=== PATIENT | male | born 1940 | race Caucasian/White ===

== ENCOUNTER 2020-02-11 18:46 | Inpatient (IN) | payer MEDICARE ==
[~2020-02-11] VITALS: Ht 160 cm; Wt 57.2 kg
[~2020-02-11 18:46] MED LIST: PANTOPRAZOLE 40MG VIAL (C9113 PER 1) IV SCH
[2020-02-11] MEDS ORDERED: LEVO500T3 PO (19:00)
[2020-02-11] MEDS ORDERED: NS 500 ML IV ONE ×2 (19:45→20:45)
[2020-02-11 19:54] LABS: BASO % 0.2 % (0.0-1.0); EOS % 0.2 % (0.0-3.0); HEMATOCRIT 33.4 % (42.0-52.0); HEMOGLOBIN 10.8 g/dl (13.5-17.5); LYMPH # 0.9 10^3/uL (1.5-5.0); LYMPH % 5.1 % (24.0-44.0); MEAN CORPUSCULAR HEMOGLOBIN 28.6 pg (27.0-33.0); MEAN CORPUSCULAR HGB CONC 32.3 g/dl (32.0-36.5); MEAN CORPUSCULAR VOLUME 88.4 fl (80.0-96.0); MONO # 1.4 10^3/uL (0.0-0.8); MONO % 8.1 % (0.0-5.0); NEUTROPHILS # 14.4 10^3/uL (1.5-8.5); NEUTROPHILS % 85.8 % (36.0-66.0); PLATELET COUNT, AUTOMATED 270 10^3/uL (150-450); RED BLOOD COUNT 3.78 10^6/uL (4.30-6.10); WHITE BLOOD COUNT 16.7 10^3/uL (4.0-10.0)
[2020-02-11 20:33] LABS: BLOOD UREA NITROGEN 22 MG/DL (7-18); CALCIUM LEVEL 10.4 MG/DL (8.8-10.2); CARBON DIOXIDE LEVEL 26 MEQ/L (21-32); CHLORIDE LEVEL 97 MEQ/L (98-107); CREATININE FOR GFR 1.21 MG/DL (0.70-1.30); GLOMERULAR FILTRATION RATE > 60.0 (>42); GLUCOSE, FASTING 103 MG/DL (70-100); POTASSIUM SERUM 4.9 MEQ/L (3.5-5.1); SODIUM LEVEL 132 MEQ/L (136-145); T UPTAKE 34 % (33-40); THYROXINE (T4) 8.7 UG/DL (4.5-12.0)
[2020-02-11] MEDS ORDERED: PANTOPRAZOLE 40MG VIAL (C9113 PER 1) IV ONE (22:00)
[2020-02-11] MEDS ORDERED: NYST50SS SS (22:02)
[2020-02-11] MEDS ORDERED: CALC600C3 PO (22:02)
[2020-02-11] MEDS ORDERED: TRAM50TA2 PO (22:02)
[2020-02-11] MEDS ORDERED: TREL1AER PO (22:02)
[2020-02-11] MEDS ORDERED: IPRA0.00 NEB (22:02)
--- NOTE | 2020-02-11 22:04 | HPEPDOC ---
General Date of Admission 02/11/20 Date of Service: Feb 11, 2020 Chief Complaint The patient is a 79-year-old male admitted with a reason for visit of Swallowing Difficulty. Source: Patient Exam Limitations: No limitations, Hard of hearing Timing/Duration: Week(s) Severity: Moderate Associated Symptoms: Weakness History of Present Illness Patient is 79 years old male with past medical history of peripheral vascular diseases with femoral popliteal bypass, who is active smoker presented to the hospital with difficulties in swallowing. According to his patient did have problems with swallowing of hard fold for a few years. Dysphagia became progressively worse for past few months. For past few days patient was unable to swallow regular foot and only just drink water or juice. In [facility] CT was done on 02/02/2020 and showed 27 mm non calcified nodule of the azygos esophageal recess and cardiomegaly. Pleural space positive for multiple pleural nodularities throughout the right hemithorax. Patient denied fever, chills, nausea, vomiting, chest pain, diarrhea or dysuria. His stated that patient lost around 22 pounds for past 12 months unintentionally. Home Medications Scheduled Calcium Carbonate/Vitamin D3 (Calcium 600+D Softgel) 1 Each Capsule, 1 CAP PO DAILY, (Reported) Fluticasone/Umeclidin/Vilanter (Trelegy Ellipta 100-62.5-25) 1 Each Blst.w.dev, 1 PUFF PO DAILY, (Reported) Levofloxacin (Levofloxacin) 500 Mg Tablet, 500 MG PO DAILY, (Reported) started 02/04/20 for 10 days Nystatin (Nystatin Oral Susp) 100,000 Unit/1 Ml Oral.susp, 5 ML SS QID, (Reported) Scheduled PRN Ipratropium/Albuterol Sulfate (Iprat-Albut 0.5-3(2.5) mg/3 ml) 3 Ml Ampul.neb, 1 VIAL NEB QID PRN for SHORTNESS OF BREATH, (Reported) Tramadol HCl (Tramadol HCl) 50 Mg Tablet, 50 MG PO Q6H PRN for PAIN, (Reported) Allergies Coded Allergies: No Known Drug Allergies (Verified Allergy, Unknown, 02/11/20) hydromorphone (Verified Adverse Reaction, Mild, 02/11/20) confusion morphine (Verified Adverse Reaction, Mild, 02/11/20) confusion Past Medical History Medical History PVD Surgical History Femoral popliteal bypass C2 neck surgery due to fracture Family History I reviewed family history and found not pertinent Social History * Smoker: current smoker Alcohol: Denies Drugs: denies A-FIB/CHADSVASC A-FIB History Current/History of A-Fib/PAF?: No Current PO Anticoag Therapy: No Review of Systems Constitutional: Reports: Malaise; Denies: Chills Eyes: Denies: Pain ENT: Denies: Head Aches Skin: Denies: Rash Pulmonary: Denies: Dyspnea Cardiovascular: Denies: Chest Pain Gastrointestinal: Reports: Other Symptoms (dysphagia of solid food) Genitourinary: Denies: Dysuria Hematologic: Denies: Bruising Endocrine: Denies: Polydipsia, Polyphagia Musculoskeletal: Denies: Neck Pain Neurological: Denies: Weakness, Numbness Psych: Reports: Mood Normal Physical Examination General Exam: Positive: Alert, Cooperative Eye Exam: Positive: PERRLA ENT Exam: Positive: Atraumatic Neck Exam: Positive: Supple; Negative: JVD Chest Exam: Positive: Clear to auscultation Heart Exam: Positive: Tachycardic Telemetry: Positive: Sinus Abdomen Exam: Positive: Normal bowel sounds, Soft; Negative: Tenderness Extremity Exam: Positive: Clubbing; Negative: Cyanosis Skin Exam: Positive: Nl turgor and temperature Neuro Exam: Positive: Strength at 5/5 X4 ext Psych Exam: Positive: Mental status NL Vital Signs Vital Signs Date Time Temp Pulse Resp B/P (MAP) Pulse Ox O2 Delivery O2 Flow Rate FiO2 02/11/20 19:11 02/11/20 18:47 96.8 68 21 97 Room Air Laboratory Data Labs 24H Laboratory Tests 2 02/11/20 19:39: Immature Granulocyte % (Auto) 0.6, Neutrophils (%) (Auto) 85.8H, Lymphocytes (%) (Auto) 5.1L, Monocytes (%) (Auto) 8.1H, Eosinophils (%) (Auto) 0.2, Basophils (%) (Auto) 0.2, Neutrophils # (Auto) 14.4H, Lymphocytes # (Auto) 0.9L, Monocytes # (Auto) 1.4H, Eosinophils # (Auto) 0.0, Basophils # (Auto) 0.0, Nucleated Red Blood Cells % (auto) 0.0, Anion Gap 9, Glomerular Filtration Rate > 60.0, Calcium Level 10.4H, Thyroid Stimulating Hormone (TSH) 4.400H, Free Thyroxine Index 3.0, Thyroxine (T4) 8.7, Triiodothyronine (T3) Uptake 34 CBC/BMP Laboratory Tests 02/11/20 19:39 Assessment/Plan Patient is 79 years old male with past medical history of peripheral vascular diseases with femoral popliteal bypass, who is active smoker presented to the hospital with difficulties in swallowing. According to his patient did have problems with swallowing of hard fold for a few years. Dysphagia became progressively worse for past few months. For past few days patient was unable to swallow regular foot and only just drink water or juice. In [facility] CT was done on 02/02/2020 and showed 27 mm non calcified nodule of the azygos esophageal recess and cardiomegaly. Pleural space positive for multiple pleural nodularities throughout the right hemithorax. Patient denied fever, chills, nausea, vomiting, chest pain, diarrhea or dysuria. His stated that patient lost around 22 pounds for past 12 months unintentionally. Problems (1) Esophageal dysphagia Status: Acute Problem Text: Differential diagnosis included achalasia, esophageal dysmotili ty, malignancy, stricture Patient is active smoker and he developed progressive swallowing difficulties of solid food Dr. Michel will proceed with endoscopy tomorrow (2) Dehydration Status: Acute Problem Text: Secondary to poor oral intake due to dysphagia Continue IV fluid (3) Peripheral vascular disease Status: Chronic Problem Text: I will start statin and aspirin Patient didn't take medications Plan / VTE VTE Prophylaxis Ordered?: Yes ANGELA OROZCO DO Feb 11, 2020 22:04
[2020-02-11 22:40] VITALS: BP 144/65
[2020-02-11] MEDS: D5W/0.9% SODIUM CHLORIDE 1,000 ML IV SCH (23:04)
[2020-02-11] MEDS: HEPARIN SOD (PORCINE) 5000UNITS/ML 1ML VIAL/SYRINGE SC SCH (23:11)
[2020-02-12] MEDS: D5W/0.9% SODIUM CHLORIDE 1,000 ML IV SCH ×3 (05:33→23:40)
[2020-02-12 06:00] VITALS: BP 123/58
[2020-02-12 07:00] LABS: HEMOGLOBIN 8.7 g/dl (13.5-17.5); MEAN CORPUSCULAR HEMOGLOBIN 28.7 pg (27.0-33.0); MEAN CORPUSCULAR HGB CONC 32.2 g/dl (32.0-36.5); MEAN CORPUSCULAR VOLUME 89.1 fl (80.0-96.0); PLATELET COUNT, AUTOMATED 211 10^3/uL (150-450); RED BLOOD COUNT 3.03 10^6/uL (4.30-6.10); WHITE BLOOD COUNT 10.1 10^3/uL (4.0-10.0)
[2020-02-12 07:29] LABS: ALBUMIN 1.5 GM/DL (3.2-5.2); ALT/SGPT 13 U/L (12-78); BILIRUBIN,TOTAL 0.6 MG/DL (0.2-1.0); BLOOD UREA NITROGEN 19 MG/DL (7-18); CALCIUM LEVEL 9.2 MG/DL (8.8-10.2); CARBON DIOXIDE LEVEL 27 MEQ/L (21-32); CHLORIDE LEVEL 104 MEQ/L (98-107); CREATININE FOR GFR 0.89 MG/DL (0.70-1.30); GLOMERULAR FILTRATION RATE > 60.0 (>42); GLUCOSE, FASTING 129 MG/DL (70-100); MAGNESIUM LEVEL 2.1 MG/DL (1.8-2.4); POTASSIUM SERUM 3.7 MEQ/L (3.5-5.1); SODIUM LEVEL 135 MEQ/L (136-145); TOTAL PROTEIN 5.1 GM/DL (6.4-8.2)
[2020-02-12] MEDS: HEPARIN SOD (PORCINE) 5000UNITS/ML 1ML VIAL/SYRINGE SC SCH ×2 (07:45→20:20)
[2020-02-12] MEDS: PANTOPRAZOLE 40MG VIAL (C9113 PER 1) IV SCH ×2 (08:21→20:20)
--- NOTE | 2020-02-12 09:36 | REP ---
REASON: Admission. PRIORS: None. The technique utilized in obtaining the radiograph has magnified the cardiac silhouette and accentuated the interstitial markings. There is cardiomegaly accentuated by technique. There is basilar fibrosis, right greater than left. Along the right lateral chest wall, there are two soft tissue masses. There is right CP angle blunting. The osseous structures are within normal limits. IMPRESSION: 1. Two pleural-based masses along the right lateral chest wall. There are no priors for comparison. Malignancy versus loculated pleural effusions. Chest CT is recommended. 2. Fibrotic changes. 3. Cardiomegaly Electronically Signed by Juni Scanlon DO 02/12/2020 09:56 A
[2020-02-12] MEDS ORDERED: ISOVUE-370 76% 100ML VIAL As Ordered ONE (10:49)
--- NOTE | 2020-02-12 12:28 | IPNPDOC ---
Date Seen The patient was seen on 02/12/20. Progress Note SUBJECTIVE: Patient appears comfortable and answer all appropriately but does seem a bit confused. AAOx3. However, when asked how long his symptoms has been there, he cannot remember and think that he has had hallucinations. Afebrile overnight. WBC 16.7 ->10.1. OBJECTIVE PHYSICAL EXAMINATION: VITAL SIGNS: Please see below. General: No acute distress, Alert, slightly confused Eyes: Normal sclera, EOMI HENT: Atraumatic Cardiovascular: Normal rate Pulmonary: Clear to auscultation b/l, no wheezing GI: Soft, nontender, nondistended Skin: Warm and dry Neuro: CN grossly intact. No focal deficits. Generalized weakness. Psych: oriented x 3, slightly confused LABORATORY DATA, IMAGING STUDIES, MICROBIOLOGY: Please see below. DVT prophylaxis ordered?: HSQ ASSESSMENT AND PLAN: 1. Esophageal/lung mass - Extensive history of smoking and fibroblast exposure when he works on [employer], denies asbestos exposure. - CT scan from [facility] shows 27mm noncalcified nodule at the azygos esophageal recess and multiple pleural nodularities throughout R. hemithorax. - Repeat CT scan here with contrast reviewed with CTS, does not look like significant fluid collection and does suggest malignancy. - GI plan on EGD today to get tissue biopsy and evaluate esophagus. - Saturating well, not in respiratory distress. - Will f/u post biopsy results and refer to oncology as appropriate. - Resume liquid diet as tolerated post procedure. 2. PVD - s/p fem pop bypass. Still smoking extensively. 3. Dehydration - 2/2 poor oral intake. - IVF support. Code status: Full code DISPOSITION: Home once medically clear. VS, I&O, 24H, [facility] Vital Signs/I&O Vital Signs Date Time Temp Pulse Resp B/P (MAP) Pulse Ox O2 Delivery O2 Flow Rate FiO2 02/12/20 06:00 98.4 84 19 123/58 (79) 96 Room Air I&O- Last 24 Hours up to 6 AM 02/12/20 06:00 Intake Total 1840 ml Balance 1840 ml Laboratory Data 24H LABS Laboratory Tests 2 02/11/20 19:39: Immature Granulocyte % (Auto) 0.6, Neutrophils (%) (Auto) 85.8H, Lymphocytes (%) (Auto) 5.1L, Monocytes (%) (Auto) 8.1H, Eosinophils (%) (Auto) 0.2, Basophils (%) (Auto) 0.2, Neutrophils # (Auto) 14.4H, Lymphocytes # (Auto) 0.9L, Monocytes # (Auto) 1.4H, Eosinophils # (Auto) 0.0, Basophils # (Auto) 0.0, Nucleated Red Blood Cells % (auto) 0.0, Anion Gap 9, Glomerular Filtration Rate > 60.0, Calcium Level 10.4H, Thyroid Stimulating Hormone (TSH) 4.400H, Free Thyroxine Index 3.0, Thyroxine (T4) 8.7, Triiodothyronine (T3) Uptake 34 02/12/20 06:27: Nucleated Red Blood Cells % (auto) 0.0, Anion Gap 4L, Glomerular Filtration Rate > 60.0, Calcium Level 9.2, Magnesium Level 2.1, Total Bilirubin 0.6, Aspartate Amino Transf (AST/SGOT) 17, Alanine Aminotransferase (ALT/SGPT) 13, Alkaline Phosphatase 112, Total Protein 5.1L, Albumin 1.5L, Albumin/Globulin Ratio 0.4 CBC/BMP Laboratory Tests 02/11/20 19:39 02/12/20 06:27 Microbiology Microbiology 02/12/20 Blood Culture, Received Pending 02/12/20 Respiratory Virus Panel (PCR) (GERMAN) - Final, Complete MOSESSHERRELL MD Feb 12, 2020 12:28
[2020-02-12 14:00] VITALS: BP 123/61
[2020-02-12 14:12] LABS: ABG BASE EXCESS -1.5 (-2.0-2.0); ABG HCO3 21.9 MEQ/L (22.0-26.0); ABG O2 SATURATION 95.6 % (95.0-99.0); ABG PARTIAL PRESSURE CO2 31.7 mmHg (35.0-45.0); ABG PARTIAL PRESSURE O2 76.2 mmHg (75.0-100.0); ABG STANDARD HCO3 23.2 MEQ/L (22.0-26.0); ABG TOTAL CO2 22.9 MEQ/L (23.0-31.0); ABG pH (ARTERIAL) 7.457 UNITS (7.350-7.450)
[2020-02-12] MEDS ORDERED: LIDOCAINE 2% 100MG/5ML SDV (FOR ANES.) As Ordered ONE (14:29)
[2020-02-12] MEDS ORDERED: propofoL 200 MG/20 ML VIAL As Ordered ONE (14:29)
--- NOTE | 2020-02-12 14:56 | REP ---
REASON: Abnormal opacities seen on plain film examination of 02/12/2020 at 11 a.m. CONTRAST TODAY: 100 mL Isovue-370. There are no prior chest CTs for comparison. There is mediastinal and particularly right infrahilar medial adenopathy. This large lymph node measures 2.8 cm in short axis dimension. There is no left hilar adenopathy. There are multiple pleural-based soft tissue mass densities along the right lateral chest wall and along the posterior and medial right chest wall. There is mixed peripheral and central enhancement of these extensive pleural-based masses. There is no evidence of free pleural fluid. Evaluation of the osseous structures shows what appears to be an old fracture involving the right 4th rib. Evaluation of the lung glover shows emphysematous changes with parenchymal fibrosis and scattered parenchymal bullae and pleural blebs in addition to the aforementioned right-sided pleural-based masses. There is honeycomb lung, particularly in the right lower lobe, complicated by parenchymal curvilinear densities, likely arising from the aforementioned masses. IMPRESSION: 1. 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 2. Advanced chronic lung changes, as described above. 3. Probable old right 4th rib fracture. Electronically Signed by Juni Scanlon DO 02/12/2020 04:27 P
--- NOTE | 2020-02-12 15:43 | CR.PDOC ---
General Date of Consultation: Feb 12, 2020 Referring Provider: ANGELA LINARES DO Attending Physician: NÉSTOR CERVANTES MD Consultation Hospitalist : Dr. Fuentes Linares Reason for consult: Dysphagia and abnormal CT scan. HPI: 79 years old male patient with peripheral vascular diseases with femoral popliteal bypass, active smoker presented to the hospital with difficulties in swallowing. According to his patient did have problems with swallowing of solid foods for a few years and recently noted that it is slowly getting worse. For past few days patient was unable to swallow regular food and only taking liquids. Patient went to [facility] where he had CT was done on 02/02/2020 and showed 27 mm non calcified nodule of the azygos esophageal recess and cardiomegaly, Pleural space positive for multiple pleural nodularities throughout the right hemithorax. ( only report available but no images). Patient denied fever, chills, nausea, vomiting, chest pain, diarrhea or dysuria. 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 Pertinent negative GI symptoms: Patient denies fever, sick contacts, recent travel, nausea, vomiting, diarrhea, abdominal pain, loss of appetite, early satiety or unintentional weight loss. No history of hematemesis, melena or hematochezia. Review of Systems: GI: as stated above CVS: No chest pain, No palpitations, No leg swelling. RS: No Shortness of breath, No Wheezing, no cough WET TRIMMER: No dizziness, No motor weakness, No sensory problems Hematology: No bruising, No gum bleeding, Musculoskeletal: No joint pain, ambulating well. Skin: No rash : No hematuria, No burning sensation of the urine ENT: No ear discharge/ pain, No dysphagia. Eyes: No photophobia. Jaundice Home medications: reviewed. Antithrombotic agents - none Medical h/o: As above. Surgical h/o: None on abdomen. Social h/o: Alcohol- past , smoking -- active smoker , IVDA/ drugs: denies. Family h/o of GI cancers - None Prior Endoscopies: None in [facility] Prior GI evaluations: None Exam: Vitals: reviewed General: Alert and oriented x 3, not in distress HEENT: NO pallor, no icterus. Normal oropharynx, NO cervical lymph nodes. Chest: symmetric with bilateral clear air entry, CVS: S1, S2 heard, normal, no murmurs . Abdomen: non-distended, no surgical scars, soft, non-tender, no palpable masses , normal bowel sounds heard. Rectal exam: Patient refused / Deferred at this time in view of scheduled colonoscopy. Extremities: no pedal edema, pulses palpable. WET TRIMMER: no focal motor or sensory deficits. Moves all extremities Skin: no rash. Labs: reviewed.. Imaging: reviewed. Impression: -- Dysphagia with abnormal CT scan showing pleural based nodules -- needs further assessment. Recommendations: - Patient educated about the test results, possible differential diagnoses and All questions answered. - Will schedule for EGD for further evaluation. - The procedure, indications, risks (bleeding, perforation, infection, hypotension, respiratory depression, allergy, need for endotracheal intubation, surgery, colostomy, cardiac arrest, even ), benefits, limitations (e.g., missing a lesion), and all other alternatives (including no intervention) were explained to the patient who understood and agreed for the procedure. - Post procedure recommendations based on the operative note. Please see the operative report ( separate note) Plan of care discussed with patient and primary team. Patient verbalized understanding and agreed with the plan. Vital Signs/I&O Vital Signs Date Time Temp Pulse Resp B/P (MAP) Pulse Ox O2 Delivery O2 Flow Rate FiO2 02/12/20 14:00 97.9 81 17 123/61 (81) 98 Room Air I&O- Last 24 Hours up to 6 AM 02/12/20 06:00 Intake Total 1840 ml Balance 1840 ml Laboratory Data Labs 24H Laboratory Tests 2 02/11/20 19:39: Immature Granulocyte % (Auto) 0.6, Neutrophils (%) (Auto) 85.8H, Lymphocytes (%) (Auto) 5.1L, Monocytes (%) (Auto) 8.1H, Eosinophils (%) (Auto) 0.2, Basophils (%) (Auto) 0.2, Neutrophils # (Auto) 14.4H, Lymphocytes # (Auto) 0.9L, Monocytes # (Auto) 1.4H, Eosinophils # (Auto) 0.0, Basophils # (Auto) 0.0, Nucleated Red Blood Cells % (auto) 0.0, Anion Gap 9, Glomerular Filtration Rate > 60.0, Calcium Level 10.4H, Thyroid Stimulating Hormone (TSH) 4.400H, Free Thyroxine Index 3.0, Thyroxine (T4) 8.7, Triiodothyronine (T3) Uptake 34 02/12/20 06:27: Nucleated Red Blood Cells % (auto) 0.0, Anion Gap 4L, Glomerular Filtration Rate > 60.0, Calcium Level 9.2, Magnesium Level 2.1, Total Bilirubin 0.6, Aspartate Amino Transf (AST/SGOT) 17, Alanine Aminotransferase (ALT/SGPT) 13, Alkaline Phosphatase 112, Total Protein 5.1L, Albumin 1.5L, Albumin/Globulin Ratio 0.4 02/12/20 14:05: Blood Gas Bicarbonate Standard 23.2, Arterial Blood pH 7.457H, Arterial Blood Partial Pressure CO2 31.7L, Arterial Blood Partial Pressure O2 76.2, Arterial Blood Total CO2 22.9L, Arterial Blood HCO3 21.9L, Arterial Blood Base Excess - 1.5, Arterial Blood Oxygen Saturation 95.6 CBC/BMP Laboratory Tests 02/11/20 19:39 02/12/20 06:27 Microbiology Microbiology 02/12/20 Blood Culture, Received Pending 02/12/20 Respiratory Virus Panel (PCR) (GERMAN) - Final, Complete Allergies Coded Allergies: Penicillins (Verified Allergy, Unknown, unknown, 02/11/20) hydromorphone (Verified Adverse Reaction, Mild, confusion, 02/11/20) confusion morphine (Verified Adverse Reaction, Mild, confusion, 02/11/20) confusion Home Medications Scheduled Calcium Carbonate/Vitamin D3 (Calcium 600+D Softgel) 1 Each Capsule, 1 CAP PO DAILY, (Reported) Fluticasone/Umeclidin/Vilanter (Trelegy Ellipta 100-62.5-25) 1 Each Blst.w.dev, 1 PUFF PO DAILY, (Reported) Levofloxacin (Levofloxacin) 500 Mg Tablet, 500 MG PO DAILY, (Reported) started 02/04/20 for 10 days Nystatin (Nystatin Oral Susp) 100,000 Unit/1 Ml Oral.susp, 5 ML SS QID, (Reported) Scheduled PRN Ipratropium/Albuterol Sulfate (Iprat-Albut 0.5-3(2.5) mg/3 ml) 3 Ml Ampul.neb, 1 VIAL NEB QID PRN for SHORTNESS OF BREATH, (Reported) Tramadol HCl (Tramadol HCl) 50 Mg Tablet, 50 MG PO Q6H PRN for PAIN, (Reported) NÉSTOR CERVANTES MD Feb 12, 2020 15:43
[2020-02-12] MEDS ORDERED: PHENYLephrine HCL 500 MCG/5 ML (100MCG/ML) SYRINGE (J2370) As Ordered ONE (15:55)
--- NOTE | 2020-02-12 16:48 | ROOR ---
Patient Name: Ramos Navarro Procedure Date: 02/12/2020 3:41 PM Date of : 1940 Age: 79 Room: Main OR Gender: Male Note Status: Finalized Procedure: Upper GI endoscopy Indications: Dysphagia, Abnormal CT of the GI tract Providers: Maksim Michel MD Referring MD: Marco A Hyde Md Requesting Provider: Medicines: Monitored Anesthesia Care Complications: No immediate complications. Procedure: Pre-Anesthesia Assessment: - Prior to the procedure, a History and Physical was performed, and patient medications and allergies were reviewed. The patient is competent. The risks and benefits of the procedure and the sedation options and risks were discussed with the patient. All questions were answered and informed consent was obtained. Patient identification and proposed procedure were verified by the physician, the nurse and the anesthesiologist in the procedure room. Mental Status Examination: alert and oriented. Airway Examination: normal oropharyngeal airway and neck mobility. Respiratory Examination: clear to auscultation. CV Examination: normal. Prophylactic Antibiotics: The patient does not require prophylactic antibiotics. Prior Anticoagulants: The patient has taken no previous anticoagulant or antiplatelet agents. ASA Grade Assessment: II - A patient with mild systemic disease. After reviewing the risks and benefits, the patient was deemed in satisfactory condition to undergo the procedure. The anesthesia plan was to use monitored anesthesia care (MAC). Immediately prior to administration of medications, the patient was re-assessed for adequacy to receive sedatives. The heart rate, respiratory rate, oxygen saturations, blood pressure, adequacy of pulmonary ventilation, and response to care were monitored throughout the procedure. The physical status of the patient was re-assessed after the procedure. The Endoscope was introduced through the mouth, and advanced to the second part of duodenum. The upper GI endoscopy was accomplished without difficulty. The patient tolerated the procedure well. Findings: One benign-appearing, intrinsic severe (stenosis; an endoscope cannot pass) stenosis was found 38 to 39 cm from the incisors. This stenosis measured 8 mm (inner diameter) x less than one cm (in length). The stenosis was traversed after downsizing scope and dilating. Biopsies were taken with a cold forceps for histology. Verification of patient identification for the specimen was done by the physician and nurse using the patient's name, date and medical record number. Estimated blood loss was minimal. A TTS dilator was passed through the scope. Dilation with a 10-11-12 mm balloon dilator was performed to 12 mm. The dilation site was examined following endoscope reinsertion and showed mild mucosal disruption, moderate improvement in luminal narrowing, no bleeding and no perforation. A small hiatal hernia was present. Localized moderate inflammation characterized by congestion (edema), friability and granularity was found at the gastroesophageal junction. Biopsies were taken with a cold forceps for histology. ( the biopsies are kept together with stricture biopsies). Moderate gastric antral vascular ectasia without bleeding was present in the gastric antrum. The duodenal bulb, second portion of the duodenum and third portion of the duodenum were normal. Impression: - Benign-appearing esophageal stenosis. Biopsied. Dilated. - Small hiatal hernia. - Gastritis. Biopsied. - Gastric antral vascular ectasia without bleeding. - Normal duodenal bulb, second portion of the duodenum and third portion of the duodenum. Recommendation: - Patient has a contact number available for emergencies. The signs and symptoms of potential delayed complications were discussed with the patient. Return to normal activities tomorrow. Written discharge instructions were provided to the patient. - Clear liquid diet today, then advance as tolerated to chopped diet, pureed diet and soft diet. - Continue present medications. - Use Protonix (pantoprazole) 40 mg PO twice daily - to be taken in morning (1/2 hour before breakfast) and at bedtime ( atleast 3 hours after last meal) for 3 months. - Use sucralfate suspension 1 gram PO QID for 4 weeks. - No ibuprofen, naproxen, or other non-steroidal anti-inflammatory drugs. - Await pathology results. - Follow an antireflux regimen. - Further work up for the pleural-based masses as per the pulmonary/ primary team. ( less likely esophageal malignancy). - Telephone GI clinic for pathology results 1 - 2 weeks. Please call GI clinic @ [phone]. - Repeat upper endoscopy in 3 months to check healing, to evaluate the response to therapy and depending on the symptoms and clinical response. - Return to primary care physician. Maksim Michel MD Maksim Michel MD 02/12/2020 4:48:11 PM Electronically signed by Maksim Michel MD Number of Addenda: 0 Note Initiated On: 02/12/2020 3:41 PM Estimated Blood Loss: Estimated blood loss was minimal.
[2020-02-12 17:00] VITALS: BP 123/62
[2020-02-12] MEDS ORDERED: LevoFLOXacin 500 MG TABLET PO ONE (17:00)
[2020-02-12] MEDS: SUCRALFATE SUSP 1GM/10ML UD PO SCH ×2 (17:08→20:20)
[2020-02-12 22:00] VITALS: BP 129/72
[2020-02-13 06:00] VITALS: BP 124/62
[2020-02-13 07:15] LABS: HEMATOCRIT 28.4 % (42.0-52.0); HEMOGLOBIN 8.9 g/dl (13.5-17.5); MEAN CORPUSCULAR HEMOGLOBIN 28.2 pg (27.0-33.0); MEAN CORPUSCULAR HGB CONC 31.3 g/dl (32.0-36.5); MEAN CORPUSCULAR VOLUME 89.9 fl (80.0-96.0); PLATELET COUNT, AUTOMATED 222 10^3/uL (150-450); RED BLOOD COUNT 3.16 10^6/uL (4.30-6.10)
[2020-02-13 07:37] LABS: BLOOD UREA NITROGEN 11 MG/DL (7-18); CALCIUM LEVEL 8.8 MG/DL (8.8-10.2); CARBON DIOXIDE LEVEL 25 MEQ/L (21-32); CHLORIDE LEVEL 108 MEQ/L (98-107); CREATININE FOR GFR 0.83 MG/DL (0.70-1.30); GLOMERULAR FILTRATION RATE > 60.0 (>42); GLUCOSE, FASTING 118 MG/DL (70-100); POTASSIUM SERUM 3.5 MEQ/L (3.5-5.1); SODIUM LEVEL 140 MEQ/L (136-145)
[2020-02-13] MEDS: PANTOPRAZOLE 40MG VIAL (C9113 PER 1) IV SCH ×2 (07:50→20:39)
[2020-02-13] MEDS: SUCRALFATE SUSP 1GM/10ML UD PO SCH ×4 (07:50→20:39)
[2020-02-13] MEDS: D5W/0.9% SODIUM CHLORIDE 1,000 ML IV SCH ×3 (07:50→23:50)
[2020-02-13] MEDS: HEPARIN SOD (PORCINE) 5000UNITS/ML 1ML VIAL/SYRINGE SC SCH ×2 (07:51→20:39)
[2020-02-13] MEDS: ACETAMINOPHEN TAB 650MG DOSE (2X325MG) PO PRN (09:42)
[2020-02-13 14:00] VITALS: BP 131/66
[2020-02-13] MEDS: traMADol 50 MG TAB PO PRN ×2 (16:02→23:46)
--- NOTE | 2020-02-13 17:29 | IPNPDOC ---
Date Seen The patient was seen on 02/13/20. Progress Note SUBJECTIVE: Patient states that he feels better today. Difficulty swallowing pills but liquid/soft diet seem to be tolerable for him. s/p EGD for esophageal dilatation yesterday. Afebrile overnight. WBC 10 OBJECTIVE PHYSICAL EXAMINATION: VITAL SIGNS: Please see below. General: No acute distress, Alert, difficult to understand speech, no teeth, cachectic Eyes: Normal sclera, EOMI HENT: Atraumatic Cardiovascular: Normal rate Pulmonary: Clear to auscultation b/l, no wheezing GI: Soft, nontender, nondistended Skin: Warm and dry Neuro: CN grossly intact. No focal deficits. Generalized weakness. Psych: oriented x 3, slightly confused LABORATORY DATA, IMAGING STUDIES, MICROBIOLOGY: Please see below. DVT prophylaxis ordered?: HSQ CT Abdomen/pelvis- 1. 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 2. Advanced chronic lung changes, as described above. 3. Probable old right 4th rib fracture. ASSESSMENT AND PLAN: 1. Esophageal/lung mass - Extensive history of smoking and fibroblast exposure when he works on [employer], denies asbestos exposure. - CT scan shows large R. sided pleural mass along with adenopathy along with chronic changes. Suspect underlying ILD. - Likely lung cancer. Refer to Onc post discharge. - Saturating well, not in respiratory distress. - CT guided biopsy ordered for tomorrow. 2. Dysphagia - Esophageal stricture s/p EGD and dilatation with GI. - Biopsy obtained. f/u results. - PPI, advance diet as tolerated. 2. PVD - s/p fem pop bypass. Still smoking extensively. 3. Dehydration - 2/2 poor oral intake. - IVF support. Code status: Full code DISPOSITION: Home once medically clear. VS, I&O, 24H, Fishbone Vital Signs/I&O Vital Signs Date Time Temp Pulse Resp B/P (MAP) Pulse Ox O2 Delivery O2 Flow Rate FiO2 02/13/20 16:32 16 02/13/20 14:00 98.1 83 131/66 (87) 96 Room Air 02/12/20 16:35 2 I&O- Last 24 Hours up to 6 AM 02/13/20 06:00 Intake Total 1610 ml Balance 1610 ml Laboratory Data 24H LABS Laboratory Tests 2 02/13/20 06:26: Nucleated Red Blood Cells % (auto) 0.0, Anion Gap 7L, Glomerular Filtration Rate > 60.0, Calcium Level 8.8 CBC/BMP Laboratory Tests 02/13/20 06:26 Microbiology Microbiology 02/12/20 Blood Culture - Preliminary, Resulted No growth after 24 hours . All specim... 02/12/20 Respiratory Virus Panel (PCR) (GERMAN) - Final, Complete SHERRELL MOSES MD Feb 13, 2020 17:29
[2020-02-13 22:00] VITALS: BP 151/81
[2020-02-14] VITALS (10 sets, daily range): BP systolic 134–190; BP diastolic 60–87
[2020-02-14 06:12] LABS: HEMATOCRIT 31.2 % (42.0-52.0); HEMOGLOBIN 9.5 g/dl (13.5-17.5); MEAN CORPUSCULAR HEMOGLOBIN 27.5 pg (27.0-33.0); MEAN CORPUSCULAR HGB CONC 30.4 g/dl (32.0-36.5); MEAN CORPUSCULAR VOLUME 90.2 fl (80.0-96.0); PLATELET COUNT, AUTOMATED 218 10^3/uL (150-450); RED BLOOD COUNT 3.46 10^6/uL (4.30-6.10); WHITE BLOOD COUNT 12.5 10^3/uL (4.0-10.0)
[2020-02-14 06:31] LABS: BLOOD UREA NITROGEN 7 MG/DL (7-18); CALCIUM LEVEL 8.6 MG/DL (8.8-10.2); CARBON DIOXIDE LEVEL 24 MEQ/L (21-32); CHLORIDE LEVEL 110 MEQ/L (98-107); CREATININE FOR GFR 0.77 MG/DL (0.70-1.30); GLOMERULAR FILTRATION RATE > 60.0 (>42); GLUCOSE, FASTING 138 MG/DL (70-100); POTASSIUM SERUM 3.1 MEQ/L (3.5-5.1); SODIUM LEVEL 142 MEQ/L (136-145)
[2020-02-14] MEDS: SUCRALFATE SUSP 1GM/10ML UD PO SCH ×4 (07:30→21:20)
[2020-02-14] MEDS: HEPARIN SOD (PORCINE) 5000UNITS/ML 1ML VIAL/SYRINGE SC SCH ×2 (07:52→21:21)
[2020-02-14] MEDS: D5W/0.9% SODIUM CHLORIDE 1,000 ML IV SCH ×2 (08:04→18:50)
[2020-02-14] MEDS: PANTOPRAZOLE 40MG VIAL (C9113 PER 1) IV SCH ×2 (08:05→21:21)
[2020-02-14] MEDS ORDERED: KCL 10MEQ/100ML SWI (KRUN) 10 MEQ in IV 1 EA IV ONE ×2 (10:00→11:00)
[2020-02-14] MEDS ORDERED: LIDOCAINE 1% MDV 20ML VIAL As Ordered ONE (11:17)
[2020-02-14] MEDS: POTASSIUM CHLORIDE 10 MEQ SR TABLET PO SCH ×2 (13:00→21:21)
--- NOTE | 2020-02-14 13:33 | REP ---
SITTING AP VIEW OF THE CHEST: Single view. HISTORY: Right lung biopsy. The patient status post CT guided needle biopsy right pleural lesion. FINDINGS: There is advanced diffuse interstitial fibrosis. Nodular pleural opacities persist along the right chest. There is no evidence of pneumothorax. IMPRESSION: No evidence of pneumothorax. Electronically Signed by Jose Alberto Myers MD 02/14/2020 04:17 P
[2020-02-14] MEDS: traMADol 50 MG TAB PO PRN ×2 (15:03→21:22)
--- NOTE | 2020-02-14 18:42 | REP ---
CT-guided right lobe lung biopsy The procedure is performed by OTONIEL Talbot, under the direct supervision of Dr. Myers. The patient has a history of a large pleural-based mass in the right lateral chest wall on a CT dated 02/13/2020. The risks and benefits of the procedure were explained to the patient and informed consent was obtained both orally and written. Directly prior to the start of the procedure, a formal timeout was done in the exam room. The right lung mass was localized using CT guidance. Skin was prepped and draped in the usual sterile fashion. 4 ml of 1% lidocaine 10 mg/ml was used as a local anesthetic. Using CT guidance a 19/20 gauge coaxial needle biopsy system was inserted and advanced into the nodule. 7 core biopsy samples were obtained and sent to the lab. CT images obtained directly after the biopsy show no evidence of pneumothorax. The patient was discharged back to the unit. Reviewed by OTONIEL Shabazz 02/14/2020 05:01 P Electronically Signed by Jose Alberto Myers MD 02/14/2020 06:34 P
--- NOTE | 2020-02-14 19:26 | IPNPDOC ---
Date Seen The patient was seen on 02/14/20. Progress Note SUBJECTIVE: Patient reports mild SOB but otherwise no significant discomfort. Wants to eat more solid food. Going for CT guided biopsy today. Afebrile overnight. OBJECTIVE PHYSICAL EXAMINATION: VITAL SIGNS: Please see below. General: No acute distress, Alert, difficult to understand speech, no teeth, cachectic Eyes: Normal sclera, EOMI HENT: Atraumatic Cardiovascular: Normal rate Pulmonary: Clear to auscultation b/l, no wheezing GI: Soft, nontender, nondistended Skin: Warm and dry Neuro: CN grossly intact. No focal deficits. Generalized weakness. Psych: oriented x 3, slightly confused LABORATORY DATA, IMAGING STUDIES, MICROBIOLOGY: Please see below. DVT prophylaxis ordered?: HSQ CT Abdomen/pelvis- 1. 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 2. Advanced chronic lung changes, as described above. 3. Probable old right 4th rib fracture. ASSESSMENT AND PLAN: 1. Esophageal/lung mass - Extensive history of smoking and fibroblast exposure when he works on [employer], denies asbestos exposure. - CT scan shows large R. sided pleural mass along with adenopathy along with chronic changes. Suspect underlying ILD. - Likely lung cancer. Refer to Onc post discharge. - Not in respiratory distress. - CT guided biopsy today. 2. Dysphagia - Esophageal stricture s/p EGD and dilatation with GI. - Biopsy obtained. f/u results. - PPI, advance diet as tolerated. 2. PVD - s/p fem pop bypass. Still smoking extensively. 3. Dehydration - 2/2 poor oral intake. - IVF support. Code status: Full code DISPOSITION: Home once medically clear. VS, I&O, 24H, Fishbone Vital Signs/I&O Vital Signs Date Time Temp Pulse Resp B/P (MAP) Pulse Ox O2 Delivery O2 Flow Rate FiO2 02/14/20 18:09 20 95 Nasal Cannula 3.0 02/14/20 17:50 96.6 140/66 (90) I&O- Last 24 Hours up to 6 AM 02/14/20 06:00 Intake Total 340 ml Output Total 0 ml Balance 340 ml Laboratory Data 24H LABS Laboratory Tests 2 02/14/20 05:44: Nucleated Red Blood Cells % (auto) 0.0, Anion Gap 8, Glomerular Filtration Rate > 60.0, Calcium Level 8.6L CBC/BMP Laboratory Tests 02/14/20 05:44 Microbiology Microbiology 02/12/20 Blood Culture - Preliminary, Resulted No Growth after 48 hours. All Specime... 02/12/20 Respiratory Virus Panel (PCR) (GERMAN) - Final, Complete SHERRELL MOSES MD Feb 14, 2020 19:26
--- NOTE | 2020-02-14 22:41 | REPVR ---
PROCEDURE INFORMATION: Exam: XR Chest, 1 View Exam date and time: 02/14/2020 10:28 PM Age: 79 years old Clinical indication: Shortness of breath; Additional info: SOB, stat read please TECHNIQUE: Imaging protocol: XR of the chest Views: 1 view. COMPARISON: CT Chest with contrast 02/12/2020 10:58 AM FINDINGS: Lungs: Bilateral coarse pulmonary parenchymal infiltrates most pronounced in the right mid and lower lung zone and the peripheral aspects of the left lung. Findings may indicate underlying interstitial lung disease. Pleural space: Lobular pleural based mass and/or loculated fluid demonstrated along the right lateral chest wall. Heart/Mediastinum: Unremarkable. No cardiomegaly. Bones/joints: Status post lower cervical interbody fusion. Osteoporosis. Degenerative spondylosis thoracic spine. Old healed rib fracture posterior right 4th rib. IMPRESSION: 1. Lobular pleural based mass and/or loculated fluid demonstrated along the right lateral chest wall. 2. Bilateral coarse pulmonary parenchymal infiltrates most pronounced in the right mid and lower lung zone and the peripheral aspects of the left lung. Findings may indicate underlying interstitial lung disease. Electronically signed by: Kalia Tay On 02/14/2020 22:40:33 PM
[2020-02-14] MEDS ORDERED: FUROSEMIDE 20MG/2ML VIAL (J1940) IV ONE (23:45)
[2020-02-14] MEDS ORDERED: VANCOMYCIN HCL 1,000 MG, VIAL MATE ADAPTER 1 EACH in D5W 250 ML IV ONE (23:45)
[2020-02-15] MEDS: IPRATROPIUM 0.5MG/ALBUTEROL 2.5MG INH SOL UD 3ML (DUONEB) NEB SCH ×5 (00:26→20:05)
[2020-02-15] MEDS ORDERED: LevoFLOXacin IV 750 MG in IV 1 EA IV ONE (01:00)
--- NOTE | 2020-02-15 04:31 | PHACANCOPD ---
PHARMACY VANCOMYCIN DOSING Pt Demographics Demographics Patient Age:79 , Weight:57.200 , Gender: male Adjusted Body Weight Date: 02/15/20, Adjusted Body Weight: [57.2] Kg(ACTUAL WT) Vancomycin Vancomycin indication: HAP Vancomycin Target Ranges: 15-20 mcg/ml Vancomycin Load Y/N: Yes Load Dose Date Time Vancomycin Load Dose: 1GM Date: 02/13 Time: 23:45 Vancomycin Dose Date: 02/15/20. Current Vancomycin Dose: [1GM Q24H@12:00] Intermittent Dosing?: No Labs Micro Microbiology 02/12/20 Blood Culture - Preliminary, Resulted No Growth after 48 hours. All Specime... 02/12/20 Respiratory Virus Panel (PCR) (GERMAN) - Final, Complete Creatinine Clearance Date:02/15/20. Creatinine Clearance: [62.7].CALCULATED Assessment and Plan Maintaining Current Dose?: Yes Reason for dose change: No Dose Change Pharmacist Note Pharmacist Note Date: 02/15/20. Pharmacist note:79 YOM ADMITTED WITH WORSENING SOB, POSSIBLE HAP. HT:63",WT:57.2KG,SCR:0.77, CRCL=62.7,ALLERGIES: PENICILLIN.ABX RX includes Levofloxacin 750mg IV [id number] and Pharmacy dosed Vancomycin (trough goal= 15- 20).MRSA PCR is pending..Vancomycin 1 gm administered 02/13@23:45, then will begin 1 gram IV [id number] regimen 02/14@12:00. First trough is scheduled for 02/15@11:00-prior to the 3rd dose- Will continue to monitor EDDIE ARNDT PHARMACY Feb 15, 2020 04:31
[2020-02-15 05:57] LABS: HEMATOCRIT 31.1 % (42.0-52.0); HEMOGLOBIN 9.8 g/dl (13.5-17.5); MEAN CORPUSCULAR HEMOGLOBIN 28.2 pg (27.0-33.0); MEAN CORPUSCULAR HGB CONC 31.5 g/dl (32.0-36.5); MEAN CORPUSCULAR VOLUME 89.6 fl (80.0-96.0); PLATELET COUNT, AUTOMATED 219 10^3/uL (150-450); RED BLOOD COUNT 3.47 10^6/uL (4.30-6.10); WHITE BLOOD COUNT 13.4 10^3/uL (4.0-10.0)
[2020-02-15 06:00] VITALS: BP 124/83
[2020-02-15 06:18] LABS: BLOOD UREA NITROGEN 7 MG/DL (7-18); CALCIUM LEVEL 9.1 MG/DL (8.8-10.2); CARBON DIOXIDE LEVEL 24 MEQ/L (21-32); CHLORIDE LEVEL 106 MEQ/L (98-107); CREATININE FOR GFR 0.83 MG/DL (0.70-1.30); GLOMERULAR FILTRATION RATE > 60.0 (>42); GLUCOSE, FASTING 104 MG/DL (70-100); POTASSIUM SERUM 3.7 MEQ/L (3.5-5.1); SODIUM LEVEL 139 MEQ/L (136-145)
[2020-02-15] MEDS: SUCRALFATE SUSP 1GM/10ML UD PO SCH ×4 (07:56→21:32)
[2020-02-15] MEDS: PANTOPRAZOLE 40MG VIAL (C9113 PER 1) IV SCH ×2 (08:02→21:32)
[2020-02-15] MEDS: HEPARIN SOD (PORCINE) 5000UNITS/ML 1ML VIAL/SYRINGE SC SCH ×2 (08:02→21:32)
[2020-02-15] MEDS: traMADol 50 MG TAB PO PRN ×2 (08:03→16:20)
[2020-02-15 10:00] VITALS: BP 120/61
[2020-02-15] MEDS ORDERED: VANCOMYCIN HCL 1,000 MG, VIAL MATE ADAPTER 1 EACH in D5W 250 ML IV SCH (12:00)
[2020-02-15 14:00] VITALS: BP 124/65
[2020-02-15 18:00] VITALS: BP 129/69
--- NOTE | 2020-02-15 19:10 | IPNPDOC ---
Date Seen The patient was seen on 02/15/20. Progress Note SUBJECTIVE: Patient appear more dyspneic today. Was adamant about going home but did poorly with PT. Full assist and O2 requirement up to 6L without doing much activity. Discussed with patient and , will try to arrange oxygen for discharge tomorrow. Informed family about poor prognosis at this time despite not having all biopsy results yet as he decompensates so quickly. Wishes to be remain full code at this time. had started talking about hospice with people already but no decision made yet. OBJECTIVE PHYSICAL EXAMINATION: VITAL SIGNS: Please see below. General: labored breathing, Alert, difficult to understand speech, no teeth, cachectic Eyes: Normal sclera, EOMI HENT: Atraumatic Cardiovascular: Normal rate Pulmonary: Clear to auscultation b/l, no wheezing GI: Soft, nontender, nondistended Skin: Warm and dry Neuro: CN grossly intact. No focal deficits. Generalized weakness. Psych: oriented x 3, slightly confused LABORATORY DATA, IMAGING STUDIES, MICROBIOLOGY: Please see below. DVT prophylaxis ordered?: HSQ CT Abdomen/pelvis- 1. 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 2. Advanced chronic lung changes, as described above. 3. Probable old right 4th rib fracture. ASSESSMENT AND PLAN: 1. Esophageal/lung mass - Extensive history of smoking and fibroblast exposure when he works on [employer], denies asbestos exposure. - CT scan shows large R. sided pleural mass along with adenopathy along with chronic changes. Suspect underlying ILD. - Likely lung cancer. Refer to Onc post discharge. - Not in respiratory distress. - CT guided biopsy, f/u results. Discussed with Dr. Arevalo, refer to f/u post discharge. - Poor prognosis, patient declines rapidly. family wants to take him home to care for him knowing he could decompensate quickly in the near future. 2. Dysphagia - Esophageal stricture s/p EGD and dilatation with GI. - Biopsy obtained. f/u results. - PPI, advance diet as tolerated. 2. PVD - s/p fem pop bypass. Still smoking extensively. 3. Dehydration - 2/2 poor oral intake. - IVF support. Code status: Full code DISPOSITION: Home likely tomorrow if O2 can be arranged. VS, I&O, 24H, Fishbone Vital Signs/I&O Vital Signs Date Time Temp Pulse Resp B/P (MAP) Pulse Ox O2 Delivery O2 Flow Rate FiO2 02/15/20 18:00 97.9 88 17 129/69 (89) 95 Nasal Cannula 3.0 I&O- Last 24 Hours up to 6 AM 02/15/20 06:00 Intake Total 680 ml Output Total 0 ml Balance 680 ml Laboratory Data 24H LABS Laboratory Tests 2 02/15/20 04:23: Methicillin-Resist S.aureus DNA PCR NOT DETECTED 02/15/20 05:36: Nucleated Red Blood Cells % (auto) 0.0, Anion Gap 9, Glomerular Filtration Rate > 60.0, Calcium Level 9.1 CBC/BMP Laboratory Tests 02/15/20 05:36 Microbiology Microbiology 02/12/20 Blood Culture - Preliminary, Resulted No Growth after 72 hours. All specime... 02/12/20 Respiratory Virus Panel (PCR) (GERMAN) - Final, Complete SHERRELL MOSES MD Feb 15, 2020 19:10
[2020-02-15] MEDS ORDERED: LevoFLOXacin IV 750 MG in IV 1 EA IV SCH (21:00)
[2020-02-15 21:05] VITALS: BP 140/52
[2020-02-15] MEDS: ACETAMINOPHEN TAB 650MG DOSE (2X325MG) PO PRN (21:32)
[2020-02-15 22:18] VITALS: BP 132/60
--- NOTE | 2020-02-16 00:18 | REPVR ---
PROCEDURE INFORMATION: Exam: XR Chest, 1 View Exam date and time: 02/15/2020 11:05 PM Age: 79 years old Clinical indication: Shortness of breath; Additional info: SOB TECHNIQUE: Imaging protocol: XR of the chest Views: 1 view. COMPARISON: CR PORTABLE CHEST X-RAY 02/14/2020 10:20 PM FINDINGS: Lungs: Coarse interstitial prominence which is similar to the prior study. Pleural space: Pleural thickening is noted laterally on the right which is similar. Heart/Mediastinum: The heart and mediastinum are unchanged. Vasculature: There appears to be a covered aortic stent in the abdomen. Bones/joints: Status post cervical fusion posteriorly with screws and vertical rods. IMPRESSION: Essentially stable chest since 02/14/2020 with coarse interstitium and pleural thickening laterally on the right. Findings may reflect pulmonary fibrosis although interstitial infiltrates are not excluded. Electronically signed by: Mushtaq Dale On 02/16/2020 00:18:49 AM
[2020-02-16 06:00] VITALS: BP 136/81
[2020-02-16 06:23] LABS: HEMOGLOBIN 9.6 g/dl (13.5-17.5); MEAN CORPUSCULAR HEMOGLOBIN 28.4 pg (27.0-33.0); MEAN CORPUSCULAR VOLUME 88.8 fl (80.0-96.0); PLATELET COUNT, AUTOMATED 239 10^3/uL (150-450); RED BLOOD COUNT 3.38 10^6/uL (4.30-6.10)
[2020-02-16 06:51] LABS: BLOOD UREA NITROGEN 12 MG/DL (7-18); CALCIUM LEVEL 10.2 MG/DL (8.8-10.2); CARBON DIOXIDE LEVEL 25 MEQ/L (21-32); CHLORIDE LEVEL 104 MEQ/L (98-107); CREATININE FOR GFR 0.89 MG/DL (0.70-1.30); GLOMERULAR FILTRATION RATE > 60.0 (>42); GLUCOSE, FASTING 100 MG/DL (70-100); POTASSIUM SERUM 3.5 MEQ/L (3.5-5.1); SODIUM LEVEL 137 MEQ/L (136-145)
[2020-02-16] MEDS: IPRATROPIUM 0.5MG/ALBUTEROL 2.5MG INH SOL UD 3ML (DUONEB) NEB SCH ×3 (07:07→15:21)
[2020-02-16] MEDS: SUCRALFATE SUSP 1GM/10ML UD PO SCH ×2 (08:18→12:00)
[2020-02-16] MEDS: PANTOPRAZOLE 40MG VIAL (C9113 PER 1) IV SCH (08:18)
[2020-02-16] MEDS: HEPARIN SOD (PORCINE) 5000UNITS/ML 1ML VIAL/SYRINGE SC SCH (08:18)
[2020-02-16 12:49] VITALS: BP 156/102
[2020-02-16 14:00] VITALS: BP 149/89
--- NOTE | 2020-02-16 22:35 | DS.PDOC ---
Discharge Summary General Date of Admission Feb 11, 2020 at 21:49 Date of Discharge 02/16/20 Discharge Summary PROCEDURES PERFORMED DURING STAY: [None]. ADMITTING DIAGNOSES: 1. . DISCHARGE DIAGNOSES: 1. . COMPLICATIONS/CHIEF COMPLAINT: Dehydration Esophageal Dysphagia. HISTORY OF PRESENT ILLNESS: . HOSPITAL COURSE: . DISCHARGE MEDICATIONS: Please see below. ALLERGIES: Please see below. PHYSICAL EXAMINATION ON DISCHARGE: VITAL SIGNS: Please see below. GENERAL: HEENT: NECK: CARDIOVASCULAR EXAMINATION: RESPIRATORY EXAMINATION: ABDOMINAL EXAMINATION: EXTREMITIES: SKIN: NEUROLOGICAL EXAMINATION: PSYCHIATRIC EXAMINATION: LABORATORY DATA: Please see below. IMAGING: PROGNOSIS: ACTIVITY: [As tolerated]. DIET: DISCHARGE PLAN: DISPOSITION: Home, Self-Care. DISCHARGE INSTRUCTIONS: 1. . ITEMS TO FOLLOWUP ON ON OUTPATIENT: 1. . DISCHARGE CONDITION: [Stable]. TIME SPENT ON DISCHARGE: Greater than minutes. Vital Signs/I&Os Vital Signs Date Time Temp Pulse Resp B/P (MAP) Pulse Ox O2 Delivery O2 Flow Rate FiO2 02/16/20 14:00 97.9 140 20 149/89 (109) 90 Venturi Mask 02/16/20 12:00 15.0 50 I&O- Last 24 Hours up to 6 AM 02/16/20 06:00 Intake Total 820 ml Output Total 0 ml Balance 820 ml Laboratory Data Labs 24H Laboratory Tests 2 02/16/20 05:51: Nucleated Red Blood Cells % (auto) 0.0, Anion Gap 8, Glomerular Filtration Rate > 60.0, Calcium Level 10.2 CBC/BMP Laboratory Tests 02/16/20 05:51 Microbiology Microbiology 02/12/20 Blood Culture - Preliminary, Resulted No Growth after 72 hours. All specime... 02/12/20 Respiratory Virus Panel (PCR) (GERMAN) - Final, Complete Discharge Medications Scheduled Calcium Carbonate/Vitamin D3 (Calcium 600+D Softgel) 1 Each Capsule, 1 CAP PO DAILY, (Reported) Fluticasone/Umeclidin/Vilanter (Trelegy Ellipta 100-62.5-25) 1 Each Blst.w.dev, 1 PUFF PO DAILY, (Reported) Levofloxacin (Levofloxacin) 500 Mg Tablet, 500 MG PO DAILY, (Reported) started 02/04/20 for 10 days Nystatin (Nystatin Oral Susp) 100,000 Unit/1 Ml Oral.susp, 5 ML SS QID, (Reported) Scheduled PRN Ipratropium/Albuterol Sulfate (Iprat-Albut 0.5-3(2.5) mg/3 ml) 3 Ml Ampul.neb, 1 VIAL NEB QID PRN for SHORTNESS OF BREATH, (Reported) Tramadol HCl (Tramadol HCl) 50 Mg Tablet, 50 MG PO Q6H PRN for PAIN, (Reported) Allergies Coded Allergies: Penicillins (Verified Allergy, Unknown, unknown, 02/11/20) hydromorphone (Verified Adverse Reaction, Mild, confusion, 02/11/20) confusion morphine (Verified Adverse Reaction, Mild, confusion, 02/11/20) confusion HERMELINDO TAVERAS MD Feb 16, 2020 22:35
== END 2020-02-16 16:51 | disposition home or self-care (01) | DRG 182 ==
LOC: M ED 18:46 → M ED INP 21:49 → ENRESERV 22:24 → M MSPAV 22:45
PROVIDERS: ADMIT Internal Medicine; ATTEND Internal Medicine
PROC: 0D728ZZ Dilation of Middle Esophagus, Via Natural or Artificial Opening Endoscopic (ICD-10-PCS; 2020-02-12)
PROC: 0DB28ZX Excision of Middle Esophagus, Via Natural or Artificial Opening Endoscopic, Diagnostic (ICD-10-PCS; principal; 2020-02-12 13:19)
PROC: 0BBC3ZX Excision of Right Upper Lung Lobe, Percutaneous Approach, Diagnostic (ICD-10-PCS; 2020-02-14)
DX: C34.91 Malignant neoplasm of unspecified part of right bronchus or lung (principal); K22.2 Esophageal obstruction; K31.819 Angiodysplasia of stomach and duodenum without bleeding; E86.0 Dehydration; Z79.899 Other long term (current) drug therapy; F17.200 Nicotine dependence, unspecified, uncomplicated; I73.9 Peripheral vascular disease, unspecified; R13.10 Dysphagia, unspecified; K44.9 Diaphragmatic hernia without obstruction or gangrene